=== PATIENT | female | born 1990 | race African-American/Black ===

== ENCOUNTER 2017-04-25 09:09 | Day surgery (SDC) | payer OTHER ==
[2017-04-25] MEDS: NS 1,000 ML IV (09:59)
[2017-04-25] MEDS ORDERED: LIDOCAINE 2% INJ 100 MG/5 ML SDV (FOR ANES.) As Ordered (10:16)
[2017-04-25] MEDS ORDERED: PROPOFOL 200 MG/20 ML VIAL As Ordered ×2 (10:16→10:33)
== END 2017-04-25 11:14 | disposition home or self-care (01) ==
LOC: M OPP 09:09
DX: R13.10 Dysphagia, unspecified (principal); R12 Heartburn; R07.89 Other chest pain; K22.8 Other specified diseases of esophagus; K44.9 Diaphragmatic hernia without obstruction or gangrene; K21.9 Gastro-esophageal reflux disease without esophagitis; Z79.899 Other long term (current) drug therapy
CPT/HCPCS: 43239